=== PATIENT | male | born 1990 | race African-American/Black ===

== ENCOUNTER 2017-01-08 22:07 | Emergency (ER) | payer OTHER ==
[2017-01-08 22:21] VITALS: RESP 18
[2017-01-08 23:59] VITALS: BP 134/65; PULSE 60; TEMP 98.9
--- NOTE | 2017-01-09 00:18 | ED ---
Lower Extremity Injury HPI - General Chief Complaint: Extremity Injury, Lower Stated Complaint: leg pain Time Seen by Provider: 01/08/17 23:34 Source: patient, RN notes reviewed Mode of arrival: ambulatory Limitations: no limitations - History of Present Illness Initial Comments: Patient is a 26-year-old male with a chief complaint of left ankle popping sensation. Patient reports that he was playing basketball and was running and felt a pop in his ankle. He states that he is unable to flex his foot. States this is never happened before any sever had any injuries to his ankle or knee. Patient states that he is able to dorsiflex the foot but is not able to plantar flex. Patient states that he does have some areas of numbness over the posterior ankle. Patient denies any recent fever, chills, shortness of breath, chest pain, back pain, abdominal pain, nausea vomiting, numbness or tingling, dysuria or hematuria, constipation or diarrhea, headaches or visual changes, or any other current symptoms - Related Data Home Medications Medication Instructions Recorded Confirmed Cholecalciferol [Vitamin D3] 1,000 unit PO DAILY 01/08/17 01/08/17 Cyanocobalamin [Vitamin B-12] 500 mcg PO DAILY 01/08/17 01/08/17 Ibuprofen [Motrin] 800 mg PO Q8H PRN 01/08/17 01/08/17 Previous Rx's Medication Instructions Recorded Naproxen 500 mg PO Q12HR #20 tab 01/09/17 Allergies Allergy/AdvReac Type Severity Reaction Status Date / Time kiwi Allergy Rash/Hives Verified 01/08/17 23:42 Review of Systems ROS Statement: Those systems with pertinent positive or pertinent negative responses have been documented in the HPI. ROS Other: All systems not noted in ROS Statement are negative. Past Medical History Past Medical History: No Reported History History of Any Multi-Drug Resistant Organisms: None Reported Past Surgical History: No Surgical Hx Reported Past Psychological History: No Psychological Hx Reported Smoking Status: Never smoker Past Alcohol Use History: None Reported Past Drug Use History: Marijuana General Exam - General Exam Comments Initial Comments: Pleasant 26 year old male, no distress. Limitations: no limitations General appearance: alert, in no apparent distress Head exam: Present: atraumatic, normocephalic, normal inspection Eye exam: Present: normal appearance, PERRL, EOMI. Absent: scleral icterus, conjunctival injection, periorbital swelling ENT exam: Present: normal exam, mucous membranes moist Neck exam: Present: normal inspection. Absent: tenderness, meningismus, lymphadenopathy Respiratory exam: Present: normal lung sounds bilaterally. Absent: respiratory distress, wheezes, rales, rhonchi, stridor Cardiovascular Exam: Present: regular rate, normal rhythm, normal heart sounds. Absent: systolic murmur, diastolic murmur, rubs, gallop, clicks GI/Abdominal exam: Present: soft, normal bowel sounds. Absent: distended, tenderness, guarding, rebound, rigid Extremities exam: Present: normal inspection, full ROM, normal capillary refill. Absent: tenderness, pedal edema, joint swelling, calf tenderness Left Knee exam: Present: normal inspection, full ROM Lower Leg exam: Present: normal inspection, full ROM Ankle exam: Present: tenderness (over achilles ). Absent: normal inspection, full ROM (patient is unable to plantar flex. Positive Thomspon TEst. ) Foot/Toe exam: Present: normal inspection. Absent: full ROM Neurovascular tendon exam: Present: no vascular compromise Gait: observed and limited by pain Back exam: Present: normal inspection Neurological exam: Present: alert, oriented X3, CN II-XII intact Psychiatric exam: Present: normal affect, normal mood Skin exam: Present: warm, dry, intact, normal color. Absent: rash Course Vital Signs 01/08/17 01/08/17 22:18 23:58 Temperature 97.9 F 98.9 F Pulse Rate 79 60 Respiratory 18 18 Rate Blood Pressure 133/67 134/65 O2 Sat by Pulse 98 100 Oximetry Procedures - Orthopedic Splinting/Casting Injury #1 Side: left Lower Extremity Injury Location: lower leg, ankle Lower Extremity Immobilizer: posterior splint Other Orthopedic Equipment: crutches Medical Decision Making - Medical Decision Making Patient is a 26-year-old male with a chief complaint of left ankle popping sensation. Patient reports that he was playing basketball and was running and felt a pop in his ankle. He states that he is unable to flex his foot. States this is never happened before any sever had any injuries to his ankle or knee. Patient states that he is able to dorsiflex the foot but is not able to plantar flex. Patient has positve Gipson test. He is unable to plantar flex ankle at all. Patient placed on posterior splint and crutches ordered. Patient advised to follow up with orthopedic physician tomorrow. Patient understands treatment plan nad will comply. - Radiology Data Radiology results: report reviewed Normal left ankle. a Disposition Clinical Impression: Achilles rupture, left Disposition: HOME SELF-CARE Condition: Good Instructions: Tendon Rupture (ED) Additional Instructions: Patient advised to follow up with orthopedic physician as soon as possible. Patient needs to remain in splint until seen by orthopedic. Return to emergency department if any alarming signs or symptoms occur. Ambulate with crutches. Prescriptions: Naproxen 500 mg PO Q12HR #20 tab Referrals: Manish Licona MD [Medical Doctor] - 1-2 days Time of Disposition: 00:47
--- NOTE | 2017-01-09 01:06 | XR ---
EXAM: XR Left Ankle Complete, 3 or More Views. CLINICAL HISTORY: Reason: Pain TECHNIQUE: Frontal, lateral and oblique views of the left ankle. COMPARISON: No relevant prior studies available. FINDINGS: Bones/joints: Unremarkable. No acute fracture. No dislocation. Soft tissues: Unremarkable. IMPRESSION: Normal left ankle
== END 2017-01-09 01:12 | disposition home or self-care (01) ==
LOC: EC 22:07
DX: S86.012A Strain of left Achilles tendon, initial encounter (principal); Z79.899 Other long term (current) drug therapy; X50.1XXA Overexertion from prolonged static or awkward postures, initial encounter; Y93.67 Activity, basketball
CPT/HCPCS: 29505; 29515; 99283

== ENCOUNTER 2017-01-18 12:56 | Day surgery (SDC) | payer OTHER ==
[2017-01-17 15:23] VITALS: BMI 31.1
[~2017-01-18 12:56] MED LIST: DEXAMETHASONE SOD PHOSPHATE 10 MG/ML 1 ML VIAL IV ONE; GLYCOPYRROLATE 0.2 MG/ML 2 ML VIAL ONE; HYDROmorphone (PF) 1 MG/ML ONE; LACTATED RINGERS 1,000 ML IV SCH; LIDOCAINE 1% 20 ML VIAL (10MG/ML) FOR IV START INTRADERMA PRN; LIDOCAINE 1% INJ 10MG/ML (20 ML MDV) ONE; MIDAZOLAM 2 MG/2 ML VIAL IV PRN; MIDAZOLAM 2 MG/2 ML VIAL ONE; NEOSTIGMINE 1 MG/ML 10 ML VIAL ONE; PROPOFOL 10 MG/ML 20 ML VIAL IV ONE; ROCURONIUM BROMIDE 10 MG/ML 10 ML VIAL IV ONE; SCOPOLAMINE 1.5MG/72HR PATCH TRANSDERM ONE; SUCCINYLCHOLINE CHLORIDE VIAL 200 MG/10 ML VIAL IV ONE; ceFAZolin 2 GM in SODIUM CHLORIDE 0.9% 100 ML IVPB ONE; fentaNYL (PF) 50 MCG/ML 2 ML AMP ONE
[2017-01-18] MEDS: ONDANSETRON 4 MG/2 ML VIAL IVP ONE ×2 (13:30→16:03)
--- NOTE | 2017-01-18 13:46 | P.HPOR ---
History of Present Illness H&P Date: 01/18/17 The patient is a previously healthy 26-year-old male who sustained an isolated injury to his left leg a little over a week ago while playing basketball. He was seen in the emergency department and referred to our office. He was diagnosed clinically with an Achilles tendon rupture and had an MRI which confirmed a mid substance Achilles tendon rupture. After discussing risks and benefits of both operative and nonoperative treatment he elected to go forward with a surgical repair. He presents to the hospital for surgery. He has no complaints other than isolated left ankle pain. He is a nonsmoker. Past Medical History Past Medical History: Musculoskeletal Disorder Additional Past Medical History / Comment(s): injured achilles last Tues, currently wearing splint History of Any Multi-Drug Resistant Organisms: None Reported Past Surgical History: No Surgical Hx Reported Additional Past Anesthesia/Blood Transfusion Reaction / Comment(s): no family problems w/anesthesia Past Psychological History: No Psychological Hx Reported Smoking Status: Never smoker Past Alcohol Use History: None Reported Past Drug Use History: Marijuana Additional Drug Use History / Comment(s): daily use - Past Family History Sister(s) Family Medical History: Cancer Medications and Allergies Home Medications Medication Instructions Recorded Confirmed Type Cholecalciferol [Vitamin D3] 1,000 unit PO DAILY 01/08/17 01/17/17 History Cyanocobalamin [Vitamin B-12] 500 mcg PO DAILY 01/08/17 01/17/17 History Ibuprofen [Motrin] 800 mg PO Q8H PRN 01/08/17 01/17/17 History Allergies Allergy/AdvReac Type Severity Reaction Status Date / Time kiwi Allergy Rash/Hives Verified 01/18/17 13:17 Physical Examination The patient is in no apparent distress and is alert and oriented. His head is normocephalic and atraumatic. He demonstrates nonlabored breathing with symmetric chest expansion. His abdomen is soft and nonobese. He has palpable peripheral pulses. A focused exam of the patient's left leg was conducted. On inspection there is resolving swelling and ecchymosis over the leg and ankle. He has a palpable gap in the mid substance of the Achilles. He has a positive Gipson's test. Sensation is intact to light touch throughout the left foot and ankle. He is a palpable dorsalis pedis pulse. Results MRI from our office shows a mid substance Achilles tendon rupture with retraction and significant tendinosis of the distal tendon. Assessment and Plan (1) Achilles rupture, left Status: Acute Plan: I lengthy discussion with the patient and the office on both nonoperative and operative treatment protocols. After this discussion the patient and his significant other decided that they wanted to have his Achilles tendon surgically repaired. He presents today for surgery. We'll plan on performing an open repair. Following surgery he'll be placed in a bulky Mendoza type splint and can discharge home as an outpatient.
[2017-01-18] MEDS ORDERED: ROCURONIUM BROMIDE 10 MG/ML 10 ML VIAL IV ONE (13:50)
[2017-01-18] MEDS ORDERED: fentaNYL (PF) 50 MCG/ML 2 ML AMP ONE (13:50)
[2017-01-18] MEDS ORDERED: MIDAZOLAM 2 MG/2 ML VIAL ONE (13:50)
[2017-01-18] MEDS ORDERED: LIDOCAINE 1% INJ 10MG/ML (20 ML MDV) ONE (13:50)
[2017-01-18] MEDS ORDERED: GLYCOPYRROLATE 0.2 MG/ML 2 ML VIAL ONE (13:50)
[2017-01-18] MEDS ORDERED: HYDROmorphone (PF) 1 MG/ML ONE (13:50)
[2017-01-18] MEDS ORDERED: SUCCINYLCHOLINE CHLORIDE 100 MG/5 ML SYR IV ONE (13:50)
[2017-01-18] MEDS ORDERED: PROPOFOL 10 MG/ML 20 ML VIAL IV ONE (13:50)
[2017-01-18] MEDS ORDERED: NEOSTIGMINE 1 MG/ML 10 ML VIAL ONE (13:50)
[2017-01-18] MEDS ORDERED: HYDROcodone/APAP 5-325MG 1 EACH TAB PO PRN ×2 (15:24)
[2017-01-18] MEDS ORDERED: HYDROmorphone 1 MG/ML 1 ML SYRINGE IVP PRN ×2 (15:24)
[2017-01-18] MEDS ORDERED: diphenhydrAMINE 25 MG CAP PO PRN (15:24)
[2017-01-18] MEDS ORDERED: ONDANSETRON 4 MG/2 ML VIAL IVP PRN (15:24)
--- NOTE | 2017-01-18 15:38 | P.OP ---
Date of Procedure: 01/18/17 Preoperative Diagnosis: Left Achilles tendon rupture Postoperative Diagnosis: Left Achilles tendon rupture Procedure(s) Performed: Open repair of left Achilles tendon rupture Anesthesia: MISSY Surgeon: Manish Licona Relationship Banker #1: Erick Singh Estimated Blood Loss (ml): 5 IV fluids (ml): 1,500 Pathology: none sent Condition: stable Disposition: PACU Indications for Procedure: The patient is a previously healthy 26-year-old male that sustained an isolated injury to his left ankle just under 2 weeks ago playing basketball. He was seen in the ER and referred to our office. He was diagnosed with a midsubstance Achilles tendon rupture clinically an MRI was obtained confirming the diagnosis of a midsubstance Achilles tendon rupture. The MRI did show tendinosis within the distal segment of the Achilles. I do lengthy discussion with the patient and his significant other on treatment including both nonoperative and operative treatment. After this discussion they elected to go forward with an open repair. We discussed potential risks and complications of surgery including but not limited to risk of anesthesia, risk of superficial infection, risk of deep infection, risk of delayed wound healing, risk of wound necrosis, risk of tendon rerupture, risk of weakness, risk of pain, risk of chronic swelling, risk of need for further surgery, risk of inability to regain preinjury level of function, risk of generalized to satisfaction with surgery, and possibly loss of life or limb. The patient and his significant other understand these complications and provided their verbal and written consent to go forward with surgery. The patient does occasionally use marijuana and recognizes that smoking marijuana places him at a slightly higher risk of having a wound complication. Operative Findings: Complete mid substance Achilles tendon rupture Description of Procedure: The patient was identified in preoperative holding and the correct left leg was marked with my initials. All the patient's questions were answered. He was then brought back to the operating room. A general anesthetic was administered while he was still on his gurney. Once the anesthetic and taken effect he was flipped into the prone position. All bony prominences were well-padded. His arms were placed carefully on arm holders. A tourniquet was applied to the patient's left thigh before flipping him prone. Preoperative antibiotics were administered. The patient's left leg was then prepped and draped in the standard sterile fashion. Prior to starting surgery timeout was performed identifying the correct patient, operative extremity, and procedure. The patient's leg was then elevated and exsanguinated 250 mmHg. A longitudinal incision was marked out over the posterior medial ankle medial to the Achilles tendon. Skin incision was made with a 15 blade scalpel. Dissection was carried down carefully through subcutaneous tissues making sure not to undermine the flaps. The peritenon was identified and incised longitudinally in line with the skin incision. Immediately upon opening the peritenon a plate rupture of the Achilles tendon was noted. The ends of the Achilles tendon were debrided. Allis clamps were used to grasp both the proximal and distal segment which then could be easily approximated. The Achilles segments were retracted and a posterior compartment fasciotomy was performed. The fascia was cleaned off with a Dinosaur elevator and a pair of tenotomy scissors were used to release the fascia proximally and distally taking care to prevent inadvertently damaging the underlying neurovascular bundle. A posterior compartment fasciotomy was performed to help facilitate closure of the peritenon and evacuation of hematoma. A #2 Ethibond was then used to grasp the proximal and distal segment with a Krakw stitch. Once both segments were grasped both limbs were tied nicely restoring tension and approximating the Achilles tendon. An 0 Vicryl stitch was used to reinforce the repair. The wound was then copiously irrigated with sterile saline. The peritenon was closed with a running 2-0 Vicryl suture. The deep subcu was reapproximated using 3-0 Monocryl. The skin was closed using 3-0 nylon Allgower modification of the Donati stitch. The tourniquet was let down for total time of 42 minutes. I verified that all instrument sponge and sharp counts were correct. Brown quarter and stretchy Steri-Strips were placed between the stitches. A sterile dressing consisting of Betadine soaked Adaptic , 4 x 4, and ABDs, and web roll was applied. The drapes were taken down and a very well-padded bulky Mendoza type splint was placed with the foot in equinus. The patient was then flipped from the prone position onto the gurney, extubated and brought to PACU in stable condition. Plan: The patient will be discharged home as an outpatient. He is treatment strictly nonweightbearing on his left leg. He'll follow-up in the office in 2 weeks for splint and suture removal and placement in a short leg cast.
[2017-01-18] MEDS: HYDROmorphone 1 MG/ML 1 ML SYRINGE IVP PRN ×4 (15:53→16:09)
[2017-01-18 15:55] VITALS: TEMP 96.9
[2017-01-18] MEDS ORDERED: KETOROLAC 30 MG/ML 1 ML VIAL IVP ONE (16:03)
[2017-01-18] MEDS: MEPERIDINE 50 MG/ML SYRINGE IVP ONE ×2 (16:12→16:14)
[2017-01-18] MEDS ORDERED: HYDROcodone/APAP 5-325MG 1 EACH TAB PO ONE (16:35)
[2017-01-18 16:40] VITALS: RESP 18
[2017-01-18 17:08] VITALS: BP 139/76; PULSE 82
== END 2017-01-18 17:25 | disposition home or self-care (01) ==
LOC: OR 12:56
PROVIDERS: ATTEND Orthopaedic Surgery
DX: S86.012A Strain of left Achilles tendon, initial encounter (principal); Y93.02 Activity, running; Y93.67 Activity, basketball; Z79.1 Long term (current) use of non-steroidal anti-inflammatories (NSAID); Z91.018 Allergy to other foods; F17.200 Nicotine dependence, unspecified, uncomplicated
CPT/HCPCS: 27650; J2250; J0330 ×2; J1100; J2710; J2175; J0690; J2405; J2001; J3010; J1885; J1170; J2704

== ENCOUNTER 2017-05-16 10:24 | Emergency (ER) | payer OTHER ==
[2017-05-16 10:41] VITALS: RESP 20; TEMP 98
[2017-05-16] MEDS ORDERED: SULFAMETH-TMP DS STARTER PACK 2 TAB BTL PO STA (12:13)
--- NOTE | 2017-05-16 12:21 | ED ---
Skin/Abscess/FB HPI - General Chief complaint: Skin/Abscess/Foreign Body Stated complaint: Tattoo infection ? Time Seen by Provider: 05/16/17 12:01 Source: patient, RN notes reviewed, old records reviewed Mode of arrival: ambulatory Limitations: no limitations - History of Present Illness Initial comments: The 26-year-old male presenting to the emergency Department chief complaint of an infected tattoo over his left forearm. Patient reports that he had a friend in the tattoo proximally 2 days ago. He states that he's had this happen before but never had any infections from it. He states that he recently did have a tetanus shot when his daughter was born a year ago. He reports that he is noticed that his arm feels warm to touch and has been seeping through the tattoo. Patient denies any fever or chills. Denies any decreased range of motion in the hand or wrist. - Related Data Home Medications Medication Instructions Recorded Confirmed Cholecalciferol [Vitamin D3] 1,000 unit PO DAILY 01/08/17 01/17/17 Cyanocobalamin [Vitamin B-12] 500 mcg PO DAILY 01/08/17 01/17/17 Ibuprofen [Motrin] 800 mg PO Q8H PRN 01/08/17 01/17/17 Previous Rx's Medication Instructions Recorded Naproxen 500 mg PO Q12HR #20 tab 01/09/17 Aspirin 325 mg PO BID 14 Days 01/18/17 Docusate [Colace] 100 mg PO BID 14 Days 01/18/17 HYDROcodone/APAP 5-325MG [[place] 1 - 2 tab PO Q4H PRN #50 tab 01/18/17 5-325] Mupirocin 2% Oint [Bactroban 2% 1 applic TOPICAL TID #1 tube 05/16/17 Oint] Sulfamethox-Tmp 800-160Mg [Bactrim 1 tab PO Q12HR 14 Days 05/16/17 DS 800-160 mg] Allergies Allergy/AdvReac Type Severity Reaction Status Date / Time kiwi Allergy Rash/Hives Verified 05/16/17 10:40 Review of Systems ROS Statement: Those systems with pertinent positive or pertinent negative responses have been documented in the HPI. ROS Other: All systems not noted in ROS Statement are negative. Past Medical History Past Medical History: Musculoskeletal Disorder Additional Past Medical History / Comment(s): injured achilles last Tues, currently wearing splint History of Any Multi-Drug Resistant Organisms: None Reported Past Surgical History: Orthopedic Surgery Additional Past Anesthesia/Blood Transfusion Reaction / Comment(s): no family problems w/anesthesia Past Psychological History: No Psychological Hx Reported Smoking Status: Never smoker Past Alcohol Use History: None Reported Past Drug Use History: Marijuana - Past Family History Sister(s) Family Medical History: Cancer General Exam - General Exam Comments Initial Comments: This is a 26-year-old male. No acute distress. Limitations: no limitations General appearance: alert, in no apparent distress Head exam: Present: atraumatic, normocephalic, normal inspection Eye exam: Present: normal appearance, PERRL, EOMI. Absent: scleral icterus, conjunctival injection, periorbital swelling ENT exam: Present: normal exam, mucous membranes moist Neck exam: Present: normal inspection. Absent: tenderness, meningismus, lymphadenopathy Respiratory exam: Present: normal lung sounds bilaterally. Absent: respiratory distress, wheezes, rales, rhonchi, stridor Cardiovascular Exam: Present: regular rate, normal rhythm, normal heart sounds. Absent: systolic murmur, diastolic murmur, rubs, gallop, clicks GI/Abdominal exam: Present: soft, normal bowel sounds. Absent: distended, tenderness, guarding, rebound, rigid Extremities exam: Present: normal inspection, full ROM, normal capillary refill , other. Absent: tenderness, pedal edema, joint swelling, calf tenderness Back exam: Present: normal inspection Neurological exam: Present: alert, oriented X3, CN II-XII intact Psychiatric exam: Present: normal affect, normal mood Skin exam: Present: warm, dry, intact, normal color, erythema (Patient has a fresh tattoo with clear seepage from it. Area of erythema surrounding the tattoo.). Absent: rash Course Vital Signs 05/16/17 10:38 Temperature 98.0 F Pulse Rate 70 Respiratory 20 Rate Blood Pressure 140/93 O2 Sat by Pulse 100 Oximetry Medical Decision Making - Medical Decision Making 26-year-old male chief complaint of left forearm tattoo infection. He states that his tetanus is up-to-date. Patient has a superficial cellulitis surrounding a fresh tattoo, measuring about 7 cm x 15 cm. Patient will be discharged with Bactroban and Bactrim DS. Discussed if the area becomes worse he needs to follow-up with primary care physician or return to the emergency department. Patient received treatment plan will comply. Return parameters were discussed. Disposition Clinical Impression: Tattoo reaction, Cellulitis Disposition: HOME SELF-CARE Condition: Good Instructions: Cellulitis (ED) Additional Instructions: Denies a take antibiotics as directed. Return to the emergency department if signs of infection continue to be worsened and spread. Don't miss a dose of antibiotic. Return to the emergency department if any alarming signs or symptoms occur. Prescriptions: Mupirocin 2% Oint [Bactroban 2% Oint] 1 applic TOPICAL TID #1 tube Sulfamethox-Tmp 800-160Mg [Bactrim DS 800-160 mg] 1 tab PO Q12HR 14 Days Referrals: None,Stated [Primary Care Provider] - 1-2 days Flaca Benavidez MD [STAFF PHYSICIAN] - 1-2 days Time of Disposition: 12:18
[2017-05-16 12:37] VITALS: BP 158/88; PULSE 72
== END 2017-05-16 12:35 | disposition home or self-care (01) ==
LOC: EC 10:24
DX: L03.114 Cellulitis of left upper limb (principal); L81.8 Other specified disorders of pigmentation; Z79.899 Other long term (current) drug therapy; Z91.018 Allergy to other foods
CPT/HCPCS: 99283

== ENCOUNTER 2018-05-27 12:21 | Emergency (ER) | payer OTHER ==
[2018-05-27 12:55] VITALS: RESP 18; TEMP 98.2
--- NOTE | 2018-05-27 13:14 | ED ---
General Adult HPI - General Chief complaint: Extremity Injury, Upper Stated complaint: shoulder injury Time Seen by Provider: 05/27/18 12:49 Source: patient, RN notes reviewed Mode of arrival: ambulatory Limitations: no limitations - History of Present Illness Initial comments: patient 28-year-old male presenting to the emergency room today with a chief complaint of right shoulder pain. Patient does admit that he was playing [employer] yesterday when he went to go for a layup and he felt his shoulder pop. States he felt that when he landed pop back in. He states he still feels some discomfort to the right shoulder that it doesn't feel it's normal. Patient states that with certain movement feels like it's not in place. Patient states he did have similar injury to shoulder few years ago. He states after back felt fine. Patient denies any other complaints or symptoms currently. Patient denies any recent fever, chills, shortness of breath, chest pain, back pain, numbness or tingling, dysuria or hematuria, constipation or diarrhea, headaches or visual changes, or any other complaints. - Related Data Previous Rx's Medication Instructions Recorded Ibuprofen [Motrin] 600 mg PO Q6HR PRN #20 day 05/27/18 Allergies Allergy/AdvReac Type Severity Reaction Status Date / Time kiwi Allergy Rash/Hives Verified 05/27/18 13:18 Review of Systems ROS Statement: Those systems with pertinent positive or pertinent negative responses have been documented in the HPI. ROS Other: All systems not noted in ROS Statement are negative. Past Medical History Past Medical History: Musculoskeletal Disorder Additional Past Medical History / Comment(s): injured achilles last Tues, currently wearing splint History of Any Multi-Drug Resistant Organisms: None Reported Past Surgical History: Orthopedic Surgery Additional Past Anesthesia/Blood Transfusion Reaction / Comment(s): no family problems w/anesthesia Past Psychological History: No Psychological Hx Reported Smoking Status: Never smoker Past Alcohol Use History: None Reported Past Drug Use History: Marijuana - Past Family History Sister(s) Family Medical History: Cancer General Exam - General Exam Comments Initial Comments: General: The patient is awake and alert, in no distress, and does not appear acutely ill. Neck: The neck is supple, there is no tenderness or JVD. Musculoskeletal: Normal appearance the right shoulder. Shows full range of motion. Sensations are intact. Radial pulses 2+. Strength 5/5. No specific bony tenderness on exam. Neurological: A&O x 3. CN II-XII intact, There are no obvious motor or sensory deficits. Coordination appears grossly intact. Speech is normal. Skin: Skin is warm and dry and no rashes or lesions are noted. Psychiatric: Normal mood and affect. Limitations: no limitations Course Vital Signs 05/27/18 12:51 Temperature 98.2 F Pulse Rate 56 L Respiratory 18 Rate Blood Pressure 144/85 O2 Sat by Pulse 100 Oximetry Medical Decision Making - Medical Decision Making Patient x-rays reviewed and are negative for any acute fracture dislocation. Results were discussed with patient. Patient will be discharged home is advised follow-up with orthopedics for further evaluation. Advised using anti- inflammatories for pain. Advised return for any other concerns. Disposition Clinical Impression: Shoulder injury Disposition: HOME SELF-CARE Condition: Good Instructions: Shoulder Pain (ED) Additional Instructions: Please continue to ice elevate the affected area at least 4 times a day for 20 minutes at a time. Please use Tylenol/ibuprofen for pain. Please follow-up in orthopedics if symptoms persist. Please return to emergency room for any other concerns. Prescriptions: Ibuprofen [Motrin] 600 mg PO Q6HR PRN #20 day PRN Reason: Pain Is patient prescribed a controlled substance at d/c from ED?: No Referrals: None,Stated [Primary Care Provider] - 1-2 days Lopez Gleason DO [Doctor of Osteopathic Medicine] - 1-2 days Time of Disposition: 14:07
--- NOTE | 2018-05-27 13:30 | XR ---
EXAMINATION TYPE: XR shoulder complete RT DATE OF EXAM: 05/27/2018 COMPARISON: NONE HISTORY: Pain TECHNIQUE: Three views are submitted. FINDINGS: The osseous structures are intact. There is no acute fracture or dislocation. The AC joint is maint ained. IMPRESSION: 1. No acute process.
[2018-05-27 14:17] VITALS: BP 140/84; PULSE 68
== END 2018-05-27 14:16 | disposition home or self-care (01) ==
LOC: EC 12:21
DX: S49.91XA Unspecified injury of right shoulder and upper arm, initial encounter (principal); Z91.018 Allergy to other foods; X50.9XXA Other and unspecified overexertion or strenuous movements or postures, initial encounter; Y93.67 Activity, basketball; Y92.89 Other specified places as the place of occurrence of the external cause
CPT/HCPCS: 99283

== ENCOUNTER 2020-08-25 08:29 | Emergency (ER) | payer OTHER ==
[2020-08-25 08:32] VITALS: BP 138/93; PULSE 63; RESP 18; TEMP 98.5
--- NOTE | 2020-08-25 08:59 | ED ---
General Adult HPI - General Chief complaint: Extremity Injury, Lower Stated complaint: L Ankle Injury Source: patient, RN notes reviewed, old records reviewed Mode of arrival: ambulatory Limitations: no limitations - History of Present Illness Initial comments: This is a 30-year-old male who presents emergency Department complaining of left heel pain. Patient states she was playing breath when he jumped down on it and since then his left heel hurts to stand up. Patient denies any ankle pain. Patient denies any other area of pain on his foot. Patient states the pain is t he bottom of the left foot at the heel. - Related Data Home Medications Medication Instructions Recorded Confirmed Ibuprofen [Motrin Ib] 400 mg PO Q8H PRN 08/25/20 08/25/20 Previous Rx's Medication Instructions Recorded Ibuprofen [Motrin] 600 mg PO Q6HR PRN #20 tab 08/25/20 Allergies Allergy/AdvReac Type Severity Reaction Status Date / Time kiwi Allergy Rash/Hives Verified 08/25/20 09:01 Review of Systems ROS Statement: Those systems with pertinent positive or pertinent negative responses have been documented in the HPI. ROS Other: All systems not noted in ROS Statement are negative. Past Medical History Past Medical History: Musculoskeletal Disorder Additional Past Medical History / Comment(s): injured achilles last Tues, currently wearing splint History of Any Multi-Drug Resistant Organisms: None Reported Past Surgical History: Orthopedic Surgery Additional Past Anesthesia/Blood Transfusion Reaction / Comment(s): no family problems w/anesthesia Past Psychological History: No Psychological Hx Reported Smoking Status: Current some day smoker Past Alcohol Use History: None Reported Past Drug Use History: Marijuana - Past Family History Sister(s) Family Medical History: Cancer General Exam - General Exam Comments Initial Comments: GENERAL Patient is well-developed and well-nourished. Patient is in mild distress. EYES Patient's pupils are equal and round. Extraocular motion is intact SKIN Unremarkable NEURO The patient is alert and oriented 3 PYSCH Patient has normal interpersonal interactions. MUSCULOSKELETAL Left heel is tender to palpation on the plantar surface. There is no ankle tenderness is no tenderness of the metatarsals. Limitations: no limitations Course Vital Signs 08/25/20 08:30 Temperature 98.5 F Pulse Rate 63 Respiratory 18 Rate Blood Pressure 138/93 O2 Sat by Pulse 100 Oximetry Medical Decision Making - Medical Decision Making Calcaneus x-ray shows no acute fracture. Disposition Clinical Impression: Contusion of heel Disposition: HOME SELF-CARE Instructions (If sedation given, give patient instructions): Foot Contusion (ED) Prescriptions: Ibuprofen [Motrin] 600 mg PO Q6HR PRN #20 tab PRN Reason: For pain Is patient prescribed a controlled substance at d/c from ED?: No Referrals: None,Stated [Primary Care Provider] - 1-2 days Time of Disposition: 09:32
--- NOTE | 2020-08-25 09:21 | XR ---
EXAMINATION TYPE: XR calcaneus 2V LT DATE OF EXAM: 08/25/2020 COMPARISON: Left ankle x-ray January 09, 2017 HISTORY: Pain after falling injury. History of prior surgery. TECHNIQUE: 2 views left calcaneus. FINDINGS: No acute fracture or dislocation is seen. Bohler's angle is maintained. The overlying soft tissue is unremarkable. IMPRESSION: No acute fracture or dislocation of the calcaneus.
== END 2020-08-25 09:51 | disposition home or self-care (01) ==
LOC: EC 08:29
DX: S90.32XA Contusion of left foot, initial encounter (principal); F17.200 Nicotine dependence, unspecified, uncomplicated; Z91.018 Allergy to other foods; Y93.67 Activity, basketball
CPT/HCPCS: 99284

== ENCOUNTER 2021-08-22 09:16 | Emergency (ER) | payer OTHER ==
[2021-08-22 09:31] VITALS: BP 134/87; PULSE 61; RESP 18
[2021-08-22 10:36] LABS: Appearance,Urine Clear (Clear); Bilirubin,Urine Negative (Negative); Blood,Urine Negative (Negative); Color,Urine Light Yellow; Glucose,Urine (UA) Negative (Negative); Ketones,Urine Negative (Negative); Leukocyte Esterase,Urine Large (Negative); Nitrite,Urine Negative (Negative); PH, Urine 5.5 (5.0-8.0); Protein,Urine Negative (Negative); RBC,Urine 2 /hpf (0-5); Specific Gravity,Urine 1.021 (1.001-1.035); Urobilinogen,Urine <2.0 mg/dL (<2.0); WBC,Urine 57 /hpf (0-5)
[2021-08-22] MEDS ORDERED: cefTRIAXone 250 MG VIAL IM STA (11:28)
[2021-08-22] MEDS ORDERED: metroNIDAZOLE 500 MG TAB PO STA (11:28)
[2021-08-22] MEDS ORDERED: AZITHROMYCIN 250 MG TAB PO STA (11:29)
--- NOTE | 2021-08-22 11:50 | ED ---
General Adult HPI - General Chief complaint: Abdominal Pain Stated complaint: revisit -STD med refill Time Seen by Provider: 08/22/21 11:13 Source: patient, RN notes reviewed Mode of arrival: ambulatory Limitations: no limitations - History of Present Illness Initial comments: Patient is a 31-year-old male presenting to the emergency department with nav jordan of a continued STD infection. Patient states she was treated for Trichomonas, completed a course of Flagyl 4 days ago. He states his girlfriend tested positive and then he was treated for it. He was never tested. He was having just some very mild discharge at the beginning of the day. He states that has not gotten any better or any worse. He denies any abdominal pain, nausea or vomiting, no fevers or chills, no swelling. He states since he did not feel any better, he wanted to be reexamined. Patient has no further complaints at this time. His vitals are stable. - Related Data Home Medications Medication Instructions Recorded Confirmed Ibuprofen [Motrin Ib] 400 mg PO Q8H PRN 08/25/20 08/25/20 Previous Rx's Medication Instructions Recorded Ibuprofen [Motrin] 600 mg PO Q6HR PRN #20 tab 08/25/20 Allergies Allergy/AdvReac Type Severity Reaction Status Date / Time kiwi Allergy Rash/Hives Verified 08/22/21 09:31 Review of Systems ROS Statement: Those systems with pertinent positive or pertinent negative responses have been documented in the HPI. ROS Other: All systems not noted in ROS Statement are negative. Past Medical History Past Medical History: Musculoskeletal Disorder Additional Past Medical History / Comment(s): injured achilles last Tues, currently wearing splint History of Any Multi-Drug Resistant Organisms: None Reported Past Surgical History: Orthopedic Surgery Additional Past Surgical History / Comment(s): right achilles tendon repair x 5- 6 months ago Additional Past Anesthesia/Blood Transfusion Reaction / Comment(s): no family problems w/anesthesia Past Psychological History: No Psychological Hx Reported Smoking Status: Current some day smoker Past Alcohol Use History: None Reported Past Drug Use History: Marijuana - Past Family History Sister(s) Family Medical History: Cancer General Exam - General Exam Comments Initial Comments: GENERAL: Patient is well-developed and well-nourished. Patient is nontoxic and in no acute distress. HEAD: Atraumatic, normocephalic. EYES: Pupils equal round and reactive to light, extraocular movements intact, sclera anicteric, conjunctiva are normal. Eyelids were unremarkable. LUNGS: Unlabored respirations. Breath sounds clear to auscultation bilaterally and equal. No wheezes rales or rhonchi. HEART: Regular rate and rhythm without murmurs, rubs or gallops. ABDOMEN: Soft, nontender, normoactive bowel sounds. No guarding, no rebound. No masses appreciated. : Deferred MUSCULOSKELETAL: Normal extremities with adequate strength and normal range of motion, no pitting or edema. No clubbing or cyanosis. NEUROLOGICAL: Patient is alert and oriented x 3. SKIN: Warm, Dry, normal turgor, no rashes or lesions noted. Limitations: no limitations Course Vital Signs 08/22/21 09:26 Temperature 97.0 F L Pulse Rate 61 Respiratory 18 Rate Blood Pressure 134/87 O2 Sat by Pulse 100 Oximetry Medical Decision Making - Medical Decision Making Patient is a 31-year-old male here wanting a recheck after being treated for Trichomonas. He finished a seven-day course of Flagyl, twice a day. He finished this 4 days ago. Still having some mild discharge. UA today reveals large amount leukocyte Estrace and 57 wbc's. He denies any dysuria or frequency. I did add on a urine culture, gonorrhea, chlamydia, Trichomonas. I will pretreat the patient for Trichomonas as well as gonorrhea and chlamydia. He is agreeable to this plan of care. Return parameters were discussed with him he verbalized understanding. - Lab Data Lab Results 08/22/21 Range/Units 10:00 Urine Color Light Yellow Urine Appearance Clear (Clear) Urine pH 5.5 (5.0-8.0) Ur Specific [place] 1.021 (1.001-1.035) Urine Protein Negative (Negative) Urine Glucose (UA) Negative (Negative) Urine Ketones Negative (Negative) Urine Blood Negative (Negative) Urine Nitrite Negative (Negative) Urine Bilirubin Negative (Negative) Urine Urobilinogen <2.0 (<2.0) mg/dL Ur Leukocyte Esterase Large H (Negative) Urine RBC 2 (0-5) /hpf Urine WBC 57 H (0-5) /hpf Disposition Clinical Impression: Penile discharge, Exposure to STD Disposition: HOME SELF-CARE Condition: Stable Instructions (If sedation given, give patient instructions): Sexually Transmitted Diseases (ED) Additional Instructions: Please return to the Emergency Department if symptoms worsen or any other concerns. Test results are still pending at this time. Do not drink alcohol for the next 48 hours. Is patient prescribed a controlled substance at d/c from ED?: No Referrals: Maicol Mcdonald MD [Primary Care Provider] - 1-2 days Time of Disposition: 11:50
[2021-08-22 12:26] VITALS: TEMP 97.8
[2021-08-23 13:32] LABS: C. trachomatis,PCR Negative (Neg,Equiv); Chlamydia trachomatis Source Urine; N. gonorrhoeae,PCR Negative (Neg,Equiv); Neisseria Source Urine
== END 2021-08-22 12:21 | disposition home or self-care (01) ==
LOC: EC 09:16
DX: R36.9 Urethral discharge, unspecified (principal); F17.200 Nicotine dependence, unspecified, uncomplicated; F12.90 Cannabis use, unspecified, uncomplicated; Z20.2 Contact with and (suspected) exposure to infections with a predominantly sexual mode of transmission
CPT/HCPCS: 99283; 96372; 81001; 87491; 87591; 87086; J0696

== ENCOUNTER 2021-09-06 09:25 | Emergency (ER) | payer OTHER ==
[2021-09-06 09:51] VITALS: BP 140/84; PULSE 65; RESP 18; TEMP 98.1
[2021-09-06] MEDS ORDERED: cefTRIAXone 250 MG VIAL IM STA (11:23)
--- NOTE | 2021-09-06 11:25 | ED ---
General Adult HPI - General Chief complaint: Recheck/Abnormal Lab/Rx Stated complaint: Recheck/Infection Time Seen by Provider: 09/06/21 10:57 Source: patient, RN notes reviewed, old records reviewed Mode of arrival: ambulatory Limitations: no limitations - History of Present Illness Initial comments: 31-year-old male presenting with dysuria and urethral discharge. He had been seen previously and treated for STDs including Trichomonas, GC and chlamydia. He states he has had a positive exposure to Trichomonas. He has not follow-up with his primary care physician. He denies rash, denies penile lesions. Denies any abdominal pain. No fevers. Patient is otherwise healthy. - Related Data Home Medications Medication Instructions Recorded Confirmed Ibuprofen [Motrin Ib] 400 mg PO Q8H PRN 08/25/20 08/25/20 Previous Rx's Medication Instructions Recorded Ibuprofen [Motrin] 600 mg PO Q6HR PRN #20 tab 08/25/20 Doxycycline [Vibramycin] 100 mg PO BID 7 Days #14 capsule 09/06/21 metroNIDAZOLE [Flagyl] 500 mg PO BID #14 tab 09/06/21 Allergies Allergy/AdvReac Type Severity Reaction Status Date / Time kiwi Allergy Rash/Hives Verified 08/22/21 09:31 Review of Systems ROS Statement: Those systems with pertinent positive or pertinent negative responses have been documented in the HPI. ROS Other: All systems not noted in ROS Statement are negative. Past Medical History Past Medical History: Musculoskeletal Disorder Additional Past Medical History / Comment(s): injured achilles last Tues, currently wearing splint History of Any Multi-Drug Resistant Organisms: None Reported Past Surgical History: Orthopedic Surgery Additional Past Surgical History / Comment(s): right achilles tendon repair x 5- 6 months ago Additional Past Anesthesia/Blood Transfusion Reaction / Comment(s): no family problems w/anesthesia Past Psychological History: No Psychological Hx Reported Smoking Status: Current some day smoker Past Alcohol Use History: None Reported Past Drug Use History: Marijuana - Past Family History Sister(s) Family Medical History: Cancer General Exam Limitations: no limitations General appearance: alert, in no apparent distress Head exam: Present: atraumatic, normocephalic Eye exam: Present: normal appearance ENT exam: Present: normal exam Neck exam: Present: normal inspection Respiratory exam: Present: normal lung sounds bilaterally. Absent: respiratory distress Cardiovascular Exam: Present: regular rate, normal rhythm GI/Abdominal exam: Present: soft. Absent: distended, tenderness Extremities exam: Present: normal inspection, normal capillary refill. Absent: pedal edema Course Vital Signs 09/06/21 09:48 Temperature 98.1 F Pulse Rate 65 Respiratory 18 Rate Blood Pressure 140/84 O2 Sat by Pulse 98 Oximetry Medical Decision Making - Medical Decision Making 31-year-old male presenting with dysuria and urethral discharge. Concern for STDs. Patient does wish to be treated for STDs including Trichomonas. I did indicate to the patient and we will test for gonorrhea, chlamydia and Trichomonas as well as urinary tract infection. Patient wants prophylaxis while awaiting these testing results. He is given intramuscular ceftriaxone. He is started on doxycycline and Flagyl. I do recommend he follows up with his primary care physician. - Lab Data Lab Results 09/06/21 Range/Units 11:13 Urine Color Yellow Urine Appearance Clear (Clear) Urine pH 6.0 (5.0-8.0) Ur Specific [place] 1.026 (1.001-1.035) Urine Protein Negative (Negative) Urine Glucose (UA) Negative (Negative) Urine Ketones Negative (Negative) Urine Blood Negative (Negative) Urine Nitrite Negative (Negative) Urine Bilirubin Negative (Negative) Urine Urobilinogen <2.0 (<2.0) mg/dL Ur Leukocyte Esterase Trace H (Negative) Urine RBC 2 (0-5) /hpf Urine WBC 9 H (0-5) /hpf Ur Squamous Epith Cells <1 (0-4) /hpf Urine Mucus Rare H (None) /hpf Disposition Clinical Impression: Exposure to STD Disposition: HOME SELF-CARE Condition: Good Instructions (If sedation given, give patient instructions): Sexually Transmi tted Diseases (ED), Trichomoniasis (ED) Prescriptions: metroNIDAZOLE [Flagyl] 500 mg PO BID #14 tab Doxycycline [Vibramycin] 100 mg PO BID 7 Days #14 capsule Is patient prescribed a controlled substance at d/c from ED?: No Referrals: None,Stated [Primary Care Provider] - 1-2 days Maicol Mcdonald MD [STAFF PHYSICIAN] - 1-2 days Time of Disposition: 11:24
[2021-09-06 12:13] LABS: Appearance,Urine Clear (Clear); Bilirubin,Urine Negative (Negative); Blood,Urine Negative (Negative); Color,Urine Yellow; Glucose,Urine (UA) Negative (Negative); Ketones,Urine Negative (Negative); Leukocyte Esterase,Urine Trace (Negative); Mucus,Urine Rare /hpf; Nitrite,Urine Negative (Negative); Protein,Urine Negative (Negative); RBC,Urine 2 /hpf (0-5); Specific Gravity,Urine 1.026 (1.001-1.035); Squamous Epithelial Cell,Urine <1 /hpf (0-4); Urobilinogen,Urine <2.0 mg/dL (<2.0); WBC,Urine 9 /hpf (0-5)
[2021-09-08 14:04] LABS: C. trachomatis,PCR Negative (Neg,Equiv); Chlamydia trachomatis Source Urine; N. gonorrhoeae,PCR Negative (Neg,Equiv); Neisseria Source Urine
== END 2021-09-06 11:46 | disposition home or self-care (01) ==
LOC: EC 09:25
DX: Z20.2 Contact with and (suspected) exposure to infections with a predominantly sexual mode of transmission (principal); F17.200 Nicotine dependence, unspecified, uncomplicated; F12.90 Cannabis use, unspecified, uncomplicated; Z79.1 Long term (current) use of non-steroidal anti-inflammatories (NSAID)
CPT/HCPCS: 99283; 81001; 87491; 87591; 96372; J0696

== ENCOUNTER 2022-06-23 09:24 | Emergency (ER) | payer OTHER ==
[2022-06-23 09:44] VITALS: BP 135/77; PULSE 59; RESP 20; TEMP 98
--- NOTE | 2022-06-23 10:50 | ED ---
General Adult HPI - General Chief complaint: Recheck/Abnormal Lab/Rx Stated complaint: Abn Labs/Recheck Time Seen by Provider: 06/23/22 09:55 Source: patient, RN notes reviewed Mode of arrival: ambulatory Limitations: no limitations - History of Present Illness Initial comments: 32-year-old male presents emergency department for recheck of SVT. Patient was recently treated for chlamydia. Patient states he wants to be rechecked make sure has cleared. Patient denies any current symptoms. - Related Data Home Medications Medication Instructions Recorded Confirmed Ibuprofen [Motrin Ib] 400 mg PO Q8H PRN 08/25/20 08/25/20 Previous Rx's Medication Instructions Recorded Ibuprofen [Motrin] 600 mg PO Q6HR PRN #20 tab 08/25/20 Doxycycline [Vibramycin] 100 mg PO BID 7 Days #14 capsule 09/06/21 metroNIDAZOLE [Flagyl] 500 mg PO BID #14 tab 09/06/21 Doxycycline [Vibramycin] 100 mg PO BID #14 capsule 05/30/22 Allergies Allergy/AdvReac Type Severity Reaction Status Date / Time kiwi Allergy Rash/Hives Verified 06/23/22 09:44 Review of Systems ROS Statement: Those systems with pertinent positive or pertinent negative responses have been documented in the HPI. ROS Other: All systems not noted in ROS Statement are negative. Past Medical History Past Medical History: No Reported History Additional Past Medical History / Comment(s): injured achilles last Tues, currently wearing splint History of Any Multi-Drug Resistant Organisms: None Reported Past Surgical History: Orthopedic Surgery Additional Past Surgical History / Comment(s): right achilles tendon repair x 5- 6 months ago Additional Past Anesthesia/Blood Transfusion Reaction / Comment(s): no family problems w/anesthesia Past Psychological History: No Psychological Hx Reported Smoking Status: Never smoker Past Alcohol Use History: None Reported Past Drug Use History: Marijuana - Past Family History Sister(s) Family Medical History: Cancer General Exam Limitations: no limitations General appearance: alert, in no apparent distress Neck exam: Present: normal inspection. Absent: tenderness, meningismus, lymphadenopathy Respiratory exam: Present: normal lung sounds bilaterally. Absent: respiratory distress, wheezes, rales, rhonchi, stridor Cardiovascular Exam: Present: regular rate, normal rhythm, normal heart sounds. Absent: systolic murmur, diastolic murmur, rubs, gallop, clicks GI/Abdominal exam: Present: soft, normal bowel sounds. Absent: distended, tenderness, guarding, rebound, rigid Course Vital Signs 06/23/22 09:41 Temperature 98 F Pulse Rate 59 L Respiratory 20 Rate Blood Pressure 135/77 O2 Sat by Pulse 100 Oximetry Medical Decision Making - Medical Decision Making Patient had recheck urine gonorrhea chlamydia. Disposition Clinical Impression: Screen for STD (sexually transmitted disease) Disposition: HOME SELF-CARE Condition: Stable Additional Instructions: Please return to the Emergency Department if symptoms worsen or any other concerns. Is patient prescribed a controlled substance at d/c from ED?: No Referrals: None,Stated [Primary Care Provider] - 1-2 days Time of Disposition: 10:50
[2022-06-26 13:33] LABS: C. trachomatis,PCR Negative (Neg,Equiv); Chlamydia trachomatis Source Urine; N. gonorrhoeae,PCR Negative (Neg,Equiv); Neisseria Source Urine
== END 2022-06-23 10:55 | disposition home or self-care (01) ==
LOC: EC 09:24
DX: Z11.3 Encounter for screening for infections with a predominantly sexual mode of transmission (principal); F12.90 Cannabis use, unspecified, uncomplicated; Z91.018 Allergy to other foods
CPT/HCPCS: 87491; 87591; 99283

== ENCOUNTER 2023-03-01 09:36 | Emergency (ER) | payer OTHER ==
[2023-03-01 09:40] VITALS: TEMP 98.1
--- NOTE | 2023-03-01 10:12 | ED ---
Male Urogenital HPI - General Chief complaint: Abdominal Pain Stated complaint: Pain urinating Time Seen by Provider: 03/01/23 09:56 Source: patient, RN notes reviewed Mode of arrival: ambulatory Limitations: no limitations - History of Present Illness Initial comments: Patient is a 32-year-old -Serbian male presenting to the emergency room with complaints of scant amount of clear penile drainage ongoing for the last 48 hours along with urinary frequency. He denies any purulent penile drainage, foul odor, dysuria, hematuria, urinary hesitancy, erectile dysfunction, scrotal pain or tenderness. Does report some chills but denies any fevers, abdominal pain, flank pain nausea or vomiting. He is requesting testing for STD. He reports that he was previously treated for trichomonas and follow-up was cleared. He denies any known exposure to any STDs. Overall he is healthy and does not take any medications on a regular basis. - Related Data Home Medications Medication Instructions Recorded Confirmed Ibuprofen [Motrin Ib] 400 mg PO Q8H PRN 08/25/20 08/25/20 Previous Rx's Medication Instructions Recorded Ibuprofen [Motrin] 600 mg PO Q6HR PRN #20 tab 08/25/20 Doxycycline [Vibramycin] 100 mg PO BID 7 Days #14 capsule 09/06/21 metroNIDAZOLE [Flagyl] 500 mg PO BID #14 tab 09/06/21 Doxycycline [Vibramycin] 100 mg PO BID #14 capsule 05/30/22 Doxycycline [Vibramycin] 100 mg PO BID 7 Days #14 capsule 03/01/23 metroNIDAZOLE [Flagyl] 500 mg PO BID 7 Days #14 tab 03/01/23 Allergies Allergy/AdvReac Type Severity Reaction Status Date / Time kiwi Allergy Rash/Hives Verified 03/01/23 09:40 Review of Systems ROS Statement: Those systems with pertinent positive or pertinent negative responses have been documented in the HPI. ROS Other: All systems not noted in ROS Statement are negative. Past Medical History Past Medical History: No Reported History Additional Past Medical History / Comment(s): injured achilles last Tues, currently wearing splint History of Any Multi-Drug Resistant Organisms: None Reported Past Surgical History: Orthopedic Surgery Additional Past Surgical History / Comment(s): right achilles tendon repair x 5- 6 months ago Additional Past Anesthesia/Blood Transfusion Reaction / Comment(s): no family problems w/anesthesia Past Psychological History: No Psychological Hx Reported Smoking Status: Never smoker Past Alcohol Use History: None Reported Past Drug Use History: Marijuana - Past Family History Sister(s) Family Medical History: Cancer General Exam - General Exam Comments Initial Comments: GENERAL: No acute distress, well developed, well nourished. HEENT: Normocephalic, atraumatic. Pupils equal, round, reactive to light. Moist mucous membranes. LUNGS: No respiratory distress or use of accessory muscles. HEART: Regular rate.. ABDOMEN/: Non-distended. Penile swab obtain, no penile discharge noted, no genital ureteral skin lesions, no scrotal edema. BACK: Normal inspection. EXTREMITIES: No edema. No tenderness. Moves all extremities. NEUROLOGIC: Alert & oriented x 3. CN II-XII grossly intact. PSYCHIATRIC: Normal affect and behavior. DERMATOLOGIC: Skin intact, without rashes or lesions noted. Limitations: no limitations Course Vital Signs 03/01/23 03/01/23 09:38 11:39 Temperature 98.1 F 98.1 F Pulse Rate 64 65 Respiratory 66 H 16 Rate Blood Pressure 141/83 162/91 O2 Sat by Pulse 100 99 Oximetry Medical Decision Making - Medical Decision Making Was pt. sent in by a medical professional or institution (, PA, ALARM SIGNALER, urgent care, hospital, or detention...) When possible be specific @ -No Did you speak to anyone other than the patient for history (EMS, parent, family, police, friend...)? What history was obtained from this source @ -No Did you review nursing and triage notes (agree or disagree)? Why? @ -I reviewed and agree with nursing and triage notes Were old charts reviewed (outside hosp., previous admission, EMS record, old EKG, old radiological studies, urgent care reports/EKG's, detention records)? Report findings @ -Yes, previous laboratory studies on file from a 06/23/2022 and 08/22/2021 reviewed. Differential Diagnosis (chest pain, altered mental status, abdominal pain women, abdominal pain men, vaginal bleeding, weakness, fever, dyspnea, syncope, headache, dizziness, GI bleed, back pain, seizure, CVA, palpatations, mental health, musculoskeletal)? @ -Differential urinary frequency with penile discharge: Sexually transmitted disease, Balantitis, urinary tract infection, prostatitis this is not meant to be an all-inclusive list. EKG interpreted by me (3pts min.). @ -None done X-rays interpreted by me (1pt min.). @ -None done CT interpreted by me (1pt min.). @ -None done U/S interpreted by me (1pt. min.). @ -None done What testing was considered but not performed or refused? (CT, X-rays, U/S, labs)? Why? @ -Serum STD testing of HIV, hepatitis and syphilis all offered and declined. What meds were considered but not given or refused? Why? @ -None Did you discuss the management of the patient with other professionals (professionals i.e. Dr., PA, ALARM SIGNALER, lab, RT, psych nurse, social insurance administrator, working manager, teacher, juvenile probation officer, director of casework)? Give summary @ -No Was smoking cessation discussed for >3mins.? @ -No Was critical care preformed (if so, how long)? @ -No Were there social determinants of health that impacted care today? How? (Homelessness, low income, unemployed, alcoholism, drug addiction, transportation, low edu. Level, literacy, decrease access to med. care, shelter, rehab)? @ -No Was there de-escalation of care discussed even if they declined (Discuss DNR or withdrawal of care, Hospice)? DNR status @ -No What co-morbidities impacted this encounter? (DM, HTN, Smoking, COPD, CAD, Cancer, CVA, ARF, Chemo, Hep., AIDS, mental health diagnosis, sleep apnea, morbid obesity)? @ -None Was patient admitted / discharged? Hospital course, mention meds given and route, prescriptions, significant lab abnormalities, going to OR and other pertinent info. @ -32-year-old -Serbian male presenting to the emergency room with complaints of occasional clear penile discharge along with urinary frequency without dysuria requesting STD testing. No abnormalities on general your total exam, penile swab obtained along with urinalysis. Long discussion with patient regarding STD exposure, testing for HIV, hepatitis, and syphilis offered and declined. Will send urine for urinalysis along with urine and genital swabs for chlamydia, gonorrhea and trichomonas. UA trace leukocytes no bacteria or ketones. Will treat empirically for STDs with Rocephin IM now and oral doxycline along with flagyl. Advised to complete course of antibiotic and antifungal as prescribed. Warned not drink alcohol while taking Flagyl. Advised patient that he has all partners tested for sexually transmitted diseases. Until testing results are negative or completion of treatment course is recommended that you abstain from intercourse. Encouraged PCP follow up. Questions and concerns answered. Return perimeters to the ER discussed. Will discharge home in stable condition on empiric treatment for STD exposure to chlamydia, gonorrhea, and trichomonas advsing abstience and PCP follow up. Undiagnosed new problem with uncertain prognosis? @ -No Drug Therapy requiring intensive monitoring for toxicity (Heparin, Nitro, Insulin, Cardizem)? @ -No Were any procedures done? @ -No Diagnosis/symptom? @ -Possible exposure to sexually transmitted diseases Acute, or Chronic, or Acute on Chronic? @ -Acute Uncomplicated (without systemic symptoms) or Complicated (systemic symptoms)? @ -Uncomplicated Side effects of treatment? @ -No Exacerbation, Progression, or Severe Exacerbation? @ -No Poses a threat to life or bodily function? How? (Chest pain, [place], [place], pneumonia, PE, COPD, DKA, ARF, appy, cholecystitis, CVA, Diverticulitis, Homicidal, Suicidal, threat to staff... and all critical care pts) @ -No Diagnosis/symptom? @ -Penile discharge with urinary frequency Acute, or Chronic, or Acute on Chronic? @ -Acute Uncomplicated (without systemic symptoms) or Complicated (systemic symptoms)? @ -Uncomplicated Side effects of treatment? @ -none Exacerbation, Progression, or Severe Exacerbation] @ -no Poses a threat to life or bodily function? @ -no Case discussed with Dr. Pappas. - Lab Data Lab Results 03/01/23 Range/Units 10:14 Urine Color Light Yellow Urine Appearance Clear (Clear) Urine pH 7.0 (5.0-8.0) Ur Specific [place] 1.014 (1.001-1.035) Urine Protein Negative (Negative) Urine Glucose (UA) Negative (Negative) Urine Ketones Negative (Negative) Urine Blood Negative (Negative) Urine Nitrite Negative (Negative) Urine Bilirubin Negative (Negative) Urine Urobilinogen <2.0 (<2.0) mg/dL Ur Leukocyte Esterase Trace H (Negative) Urine RBC 1 (0-5) /hpf Urine WBC 14 H (0-5) /hpf Disposition Clinical Impression: Sexually transmitted disease counseling, Sexually transmitted disease exposure, Urinary frequency, Penile discharge, without blood Disposition: HOME SELF-CARE Condition: Stable Instructions (If sedation given, give patient instructions): Sexually Transmitted Diseases (ED), Safe Sex Practices (ED) Additional Instructions: Complete course of antibiotic and antifungal as prescribed. Do not drink alcohol while taking Flagyl. It is recommended that you have all partners tested for sexually transmitted diseases. Until testing results are negative or completion of treatment course is recommended that you abstain from intercourse. Please follow-up with your primary care provider. Please return to the Emergency Department if symptoms worsen or any other concerns. Prescriptions: metroNIDAZOLE [Flagyl] 500 mg PO BID 7 Days #14 tab Doxycycline [Vibramycin] 100 mg PO BID 7 Days #14 capsule Is patient prescribed a controlled substance at d/c from ED?: No Referrals: None,Stated [Primary Care Provider] - 1-2 days Time of Disposition: 11:20
[2023-03-01 11:07] LABS: Appearance,Urine Clear (Clear); Bilirubin,Urine Negative (Negative); Blood,Urine Negative (Negative); Color,Urine Light Yellow; Glucose,Urine (UA) Negative (Negative); Ketones,Urine Negative (Negative); Leukocyte Esterase,Urine Trace (Negative); Nitrite,Urine Negative (Negative); Protein,Urine Negative (Negative); RBC,Urine 1 /hpf (0-5); Specific Gravity,Urine 1.014 (1.001-1.035); Urobilinogen,Urine <2.0 mg/dL (<2.0); WBC,Urine 14 /hpf (0-5)
[2023-03-01] MEDS ORDERED: cefTRIAXone 1,000 MG VIAL (IM USE) IM STA (11:12)
[2023-03-01 11:43] VITALS: BP 162/91; PULSE 65; RESP 16
== END 2023-03-01 11:43 | disposition home or self-care (01) ==
LOC: EC 09:36
DX: A64 Unspecified sexually transmitted disease (principal); R35.0 Frequency of micturition; F12.90 Cannabis use, unspecified, uncomplicated; Z70.9 Sex counseling, unspecified; Z91.018 Allergy to other foods
CPT/HCPCS: 81001; 87086; 99284; 96372; J0696; 87491; 87591